=== PATIENT | female | born 1980 ===

== ENCOUNTER 2018-03-14 02:00 | Emergency (ER) | payer MEDICAID ==
[2018-03-14 02:10] VITALS: TEMP 98.9
[2018-03-14] MEDS ORDERED: Alum-Mag Hydrox-Simethicone Susp (30 mL) PO STA (02:28)
[2018-03-14] MEDS ORDERED: Alum-Mag Hydrox-Simethicone Susp (30 mL) ONE (02:43)
--- NOTE | 2018-03-14 02:51 | ED PDOC ---
HPI: General Adult Time Seen by Provider: 03/14/18 02:08 Chief Complaint (Nursing): Anxiety Chief Complaint (Provider): Chest pain and Abdominal Pain History Per: Patient History/Exam Limitations: no limitations Onset/Duration Of Symptoms: Hrs (x2) Current Symptoms Are (Timing): Still Present Additional Complaint(s): 37 year old female with no PMHx presents to the ED with chest pain onset x2 hours. Patient reports she was awoken by a sense of chest tightness and inability to take in a deep breath. She also reports epigastric pain associated x1 episode of non-bloody, non-bilious vomiting but denies nausea. PMD: [place] Past Medical History Reviewed: Historical Data, Nursing Documentation, Vital Signs Vital Signs: Last Vital Signs Temp 98.9 F 03/14/18 02:08 Pulse 104 H 03/14/18 02:08 Resp 17 03/14/18 02:08 BP 128/78 03/14/18 02:08 Pulse Ox 98 03/14/18 02:08 - Medical History PMH: No Chronic Diseases - Surgical History Surgical History: Cholecystectomy - Family History Family History: States: Unknown Family Hx - Social History Current smoker - smoking cessation education provided: No Ex-Smoker (has not smoked in the last 12 months): No Alcohol: Occasional Drugs: Denies - Home Medications Home Medications: Ambulatory Orders Medication Instructions Recorded Esomeprazole Magnesium [Nexium] 20 mg PO QAM #20 ecc 03/14/18 - Allergies Allergies/Adverse Reactions: Allergies Allergy/AdvReac Type Severity Reaction Status Date / Time No Known Allergies Allergy Verified 03/14/18 02:10 Review of Systems ROS Statement: Except As Marked, All Systems Reviewed And Found Negative Cardiovascular: Positive for: Chest Pain (tightness) Respiratory: Positive for: Other (difficulty breathing) Gastrointestinal: Positive for: Vomiting, Abdominal Pain. Negative for: Nausea Physical Exam - Reviewed Nursing Documentation Reviewed: Yes Vital Signs Reviewed: Yes - Physical Exam Appears: Positive for: Uncomfortable Head Exam: Positive for: ATRAUMATIC, NORMOCEPHALIC Skin: Positive for: Normal Color, Warm, Dry Eye Exam: Positive for: EOMI, Normal appearance, PERRL Neck: Positive for: Normal, Painless ROM Cardiovascular/Chest: Positive for: Regular Rate, Rhythm Respiratory: Positive for: Normal Breath Sounds. Negative for: Respiratory Distress Gastrointestinal/Abdominal: Positive for: Tenderness (mild epigastric) Extremity: Positive for: Normal ROM (upper and lower). Negative for: Pedal Edema, Deformity Neurologic/Psych: Positive for: Alert, Oriented (x3). Negative for: Motor/Sensory Deficits - Laboratory Results Result Diagrams: 03/14/18 02:45 03/14/18 02:45 - ECG O2 Sat by Pulse Oximetry: 98 (RA) Pulse Ox Interpretation: Normal Medical Decision Making Medical Decision Making: Time: 213 Impression: 37 y/o with chest pain and epigastric pain Plan: --Labs --EKG Time: 427 --Labs reviewed, no clinically significant abnormalities. Patient reports improvement in symptoms. Diagnosis atypical chest pain. Scribe Attestation: Documented by Masha Vasquez, acting as a scribe for Keenan Salcedo MD. Provider Scribe Attestation: All medical record entries made by the Scribe were at my direction and personally dictated by me. I have reviewed the chart and agree that the record accurately reflects my personal performance of the history, physical exam, medical decision making, and the department course for this patient. I have also personally directed, reviewed, and agree with the discharge instructions and disposition. Disposition - Clinical Impression Clinical Impression: Atypical chest pain - Disposition Disposition Time: 04:28 Condition: STABLE Prescriptions: Esomeprazole Magnesium [Nexium] 20 mg PO QAM #20 ecc Instructions: Chest Pain That Is Not Caused by the Heart (DC) Forms: [employer] ([employer])
[2018-03-14 02:58] LABS: BASO # 0.1 K/uL (0.0-0.2); BASO % 0.5 % (0.0-2.0); EOS # 0.1 K/uL (0.0-0.7); EOS % 0.7 % (0.0-4.0); HEMOGLOBIN 13.1 g/dL (12.0-16.0); LYMPH # 1.9 K/uL (1.0-4.3); LYMPH % 15.5 % (20.0-40.0); MEAN CELL VOLUME 88.2 fl (81.0-99.0); MEAN CORPUSCULAR HEMOGLOBIN 28.5 pg (27.0-31.0); MEAN CORPUSCULAR HGB CONC 32.2 g/dL (33.0-37.0); MEAN PLATELET VOLUME 7.9 fl (7.2-11.7); MONO # 0.5 K/uL (0.0-0.8); MONO % 3.8 % (0.0-10.0); NEUT # 9.9 K/uL (1.8-7.0); NEUT % 79.5 % (50.0-75.0); NRBC % 0.1 % (0.0-0.0); RBC 4.6 Mil/uL (3.80-5.20); RED CELL DISTRIBUTION WIDTH 13.5 % (11.5-14.5); WHITE BLOOD COUNT 12.5 K/uL (4.8-10.8)
[2018-03-14 03:14] LABS: ALB/GLOB RATIO 1.4 (1.0-2.1); ALBUMIN 4.6 g/dL (3.5-5.0); ALT/SGPT 99 U/L (9-52); AST/SGOT 155 U/L (14-36); BLOOD UREA NITROGEN 19 mg/dl (7-17); CALCIUM 9.3 mg/dL (8.4-10.2); GFR NON-AFRICAN AMERICAN > 60; LIPASE 134 U/L (23-300)
[2018-03-14 03:24] LABS: BARBITURATES, UR NEGATIVE (NEGATIVE); BENZODIAZEPINES, UR NEGATIVE (NEGATIVE); OPIATES, UR POSITIVE (NEGATIVE); PHENCYCLIDINE, UR NEGATIVE (NEGATIVE)
[2018-03-14 04:30] VITALS: BP 105/64; PULSE 70; RESP 16
[2018-03-14 04:33] VITALS: O2SAT 98
--- NOTE | 2018-03-14 07:14 | CARD ---
APPROVED REPORT Date of service: 03/14/2018 EKG Measurement Heart [id number] <Conclusion> Normal sinus rhythm Normal ECG
== END 2018-03-14 04:28 | disposition home or self-care (01) ==
LOC: H.ER 02:00
DX: R07.89 Other chest pain (principal); Z87.891 Personal history of nicotine dependence
CPT/HCPCS: 80053; 80324; 80345; 80346; 80349; 80353; 80358; 80361; 83690; 83992; 84484; 85025; 85378; 93005; 99283; J1885

== ENCOUNTER 2018-03-23 22:29 | Emergency (ER) | payer MEDICAID ==
[2018-03-23 22:59] VITALS: O2SAT 100
[2018-03-23] MEDS ORDERED: Iohexol 240 (50 ml) PO STA (23:34)
[2018-03-23] MEDS ORDERED: Sodium Chloride 0.9% 1,000 ML IV STA (23:35)
[2018-03-23] MEDS ORDERED: DiphenhydrAMINE 50 mg/ml Inj IVP STA (23:35)
[2018-03-23] MEDS ORDERED: DiphenhydrAMINE 50 mg/ml Inj ONE (23:42)
[2018-03-23] MEDS ORDERED: Iohexol 240 (50 ml) ONE (23:42)
--- NOTE | 2018-03-24 00:13 | ED PDOC ---
HPI: Abdomen Time Seen by Provider: 03/23/18 23:07 Chief Complaint (Nursing): GI Problem Chief Complaint (Provider): GI Problem History Per: Patient Onset/Duration Of Symptoms: Hrs (x9) Associated Symptoms: Vomiting, Diarrhea Additional Complaint(s): 38 y/o female presents to the ED complaining of vomiting and diarrhea onset earlier today at around 14:00. Patient states that she started having stomach discomfort to her upper abdominal area. Then by around 18:00 she started having multiple episodes of non-bloody non-bilious vomiting associated with watery diarrhea, body aches, and severe weakness. Patient reports having about 12 episodes of vomiting. 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 She denies any recent travel. Patient was seen in this ER on Mar 14 for chest pain and wa s diagnosed with gastritis. Patient states she had been planning to follow up with PMD this week. Patient additionally reports aches to the left side of her neck and her left shoulder which are the same as her last visit. Past Medical History Reviewed: Historical Data, Nursing Documentation, Vital Signs Vital Signs: Last Vital Signs Temp 98.3 F 03/23/18 22:55 Pulse 116 H 03/23/18 22:55 Resp 18 03/23/18 22:55 BP 111/76 03/23/18 22:55 Pulse Ox 100 03/23/18 22:55 - Medical History PMH: No Chronic Diseases - Surgical History Surgical History: Cholecystectomy, - Family History Family History: States: No Known Family Hx, Unknown Family Hx - Social History Current smoker - smoking cessation education provided: No Alcohol: Other (rarely) Drugs: Denies - Home Medications Home Medications: Ambulatory Orders Medication Instructions Recorded Esomeprazole Magnesium [Nexium] 20 mg PO QAM #20 ecc 03/14/18 - Allergies Allergies/Adverse Reactions: Allergies Allergy/AdvReac Type Severity Reaction Status Date / Time No Known Allergies Allergy Verified 03/14/18 02:10 Review of Systems ROS Statement: Except As Marked, All Systems Reviewed And Found Negative (as per HPI otherwise negative) Constitutional: Positive for: Weakness Gastrointestinal: Positive for: Vomiting, Abdominal Pain, Diarrhea Physical Exam - Reviewed Nursing Documentation Reviewed: Yes Vital Signs Reviewed: Yes - Physical Exam Appears: Positive for: Well (Tired appearing), In Acute Distress (gastrointestinal distress) Head Exam: Positive for: ATRAUMATIC, NORMOCEPHALIC Skin: Positive for: Warm, Dry Eye Exam: Positive for: EOMI, PERRL ENT: Positive for: Other (Tacky mucous membranes) Neck: Positive for: Normal, Painless ROM, Supple Cardiovascular/Chest: Positive for: Regular Rate, Rhythm. Negative for: Murmur Respiratory: Positive for: Normal Breath Sounds. Negative for: Respiratory Di stress Gastrointestinal/Abdominal: Positive for: Bowel Sounds (hyperactive), Soft, Tenderness (epigastric and RUQ). Negative for: Distended Back: Positive for: Normal Inspection. Negative for: Muscle Spasm Extremity: Positive for: Normal ROM. Negative for: Deformity Lymphatic: Negative for: Adenopathy Neurologic/Psych: Positive for: Alert, Mood/Affect (anxious affect). Negative for: Motor/Sensory Deficits - Laboratory Results Result Diagrams: 03/23/18 00:10 03/23/18 00:10 - ECG O2 Sat by Pulse Oximetry: 100 (RA) Pulse Ox Interpretation: Normal Medical Decision Making Medical Decision Making: Time: 23:35 Initial Impression: vomiting and diarrhea Initial Plan: * CT Abd Pelvis * CMP * Drug screen * Lipase * ED Urine * CBC w/ diff * Benadryl 25 mg * IV Fluids * Omnipaque 50 ml * Pepcid 20 mg * Reglan 10 mg --------- -------- Scribe Attestation: Documented by Alex Valle acting as a scribe for Kandace Howell MD. Provider Scribe Attestation: All medical record entries made by the Scribe were at my direction and personally dictated by me. I have reviewed the chart and agree that the record accurately reflects my personal performance of the history, physical exam, medical decision making, and the department course for this patient. I have also personally directed, reviewed, and agree with the discharge instructions and disposition. Disposition - Clinical Impression Clinical Impression: Abdominal pain - Disposition Disposition: Transfer of Care Disposition Time: 00:00 Condition: STABLE Patient Signed Over To: Keenan Salcedo Handoff Comments: Pending ER workup, reassessment and final ER disposition
[2018-03-24 00:27] LABS: BASO % 0.1 % (0.0-2.0); EOS % 0.1 % (0.0-4.0); LYMPH # 0.4 K/uL (1.0-4.3); LYMPH % 3.2 % (20.0-40.0); MEAN CELL VOLUME 86.5 fl (81.0-99.0); MEAN CORPUSCULAR HEMOGLOBIN 28.2 pg (27.0-31.0); MEAN CORPUSCULAR HGB CONC 32.7 g/dL (33.0-37.0); MEAN PLATELET VOLUME 8.4 fl (7.2-11.7); MONO # 0.4 K/uL (0.0-0.8); NEUT # 12.5 K/uL (1.8-7.0); NEUT % 93.6 % (50.0-75.0); PLATELET COUNT 323 K/uL (130-400); RBC 5.31 Mil/uL (3.80-5.20); RED CELL DISTRIBUTION WIDTH 13.7 % (11.5-14.5); WHITE BLOOD COUNT 13.3 K/uL (4.8-10.8)
[2018-03-24 00:45] LABS: ALB/GLOB RATIO 1.2 (1.0-2.1); ALBUMIN 4.7 g/dL (3.5-5.0); ALT/SGPT 110 U/L (9-52); AST/SGOT 49 U/L (14-36); BLOOD UREA NITROGEN 22 mg/dl (7-17); CALCIUM 9.1 mg/dL (8.4-10.2); GFR NON-AFRICAN AMERICAN > 60; LIPASE 78 U/L (23-300)
[2018-03-24 00:57] LABS: BARBITURATES, UR NEGATIVE (NEGATIVE); BENZODIAZEPINES, UR NEGATIVE (NEGATIVE); OPIATES, UR NEGATIVE (NEGATIVE); PHENCYCLIDINE, UR NEGATIVE (NEGATIVE)
--- NOTE | 2018-03-24 01:25 | ED PDOC ---
- Laboratory Results Result Diagrams: 03/23/18 00:10 03/23/18 00:10 Lab Results: Total Bilirubin 0.7 mg/dl (0.2-1.3) 03/23/18 00:10 AST 49 U/L (14-36) H D 03/23/18 00:10 ALT 110 U/L (9-52) H 03/23/18 00:10 Alkaline Phosphatase 66 U/L (38-126) 03/23/18 00:10 Total Protein 8.5 G/DL (6.3-8.2) H 03/23/18 00:10 Albumin 4.7 g/dL (3.5-5.0) 03/23/18 00:10 Globulin 3.8 gm/dL (2.2-3.9) 03/23/18 00:10 Albumin/Globulin Ratio 1.2 (1.0-2.1) 03/23/18 00:10 Lipase 78 U/L (23-300) 03/23/18 00:10 - ECG O2 Sat by Pulse Oximetry: 100 (RA) Pulse Ox Interpretation: Normal Medical Decision Making Medical Decision Making: Time: 00:00 Patient care endorsed from Dr. Howell to provider pending CT and reevaluation. 02:55 CT Abd Pelvis COMMENTS: The liver is of uniform attenuation without mass or defect. There is no intra or extrahepatic biliary ductal dilatation. The spleen is normal. The gallbladder is surgically absent. The pancreas is of normal contour and attenuation characteristics. There is no evidence of adrenal mass. Benign self-limited uncomplicated proximal jejunal/jejunal intussusception. Fluid-filled small bowels. Fluid-filled colon. Both kidneys demonstrate prompt and equal nephrograms. The kidneys are normal in size, shape and configuration. There is no evidence of renal or ureteral mass. No renal or ureteral calculi are identified. There is no hydroureter or hydronephrosis. No evidence for appendicitis. There is no bowel wall thickening. No evidence for small or large bowel obstruction. There is no evidence of abdominal ascites or lymphadenopathy. There is no evidence of intrinsic or extrinsic bladder mass. There is no pelvic ascites or lymphadenopathy. Images of the lung bases show no evidence of pleural or parenchymal mass. There are no pleural effusions. The bony structures are free of lytic or blastic lesions. IMPRESSION: Uncomplicated enterocolitis. Benign incidental proximal small bowel intussusception. Probably a benign self- limited finding which can be secondary to hyperactive bowels. No associated bowel edema, surrounding mesenteric edema or bowel perforation. No secondary bowel obstruction. 04:05 Patient reports improvement of symptoms at this time. Stable for discharge diagnosis is gastroenteritis. Scribe Attestation: Documented by Alex Valle acting as a scribe for Keenan Salcedo MD. Provider Scribe Attestation: All medical record entries made by the Scribe were at my direction and personally dictated by me. I have reviewed the chart and agree that the record accurately reflects my personal performance of the history, physical exam, medical decision making, and the department course for this patient. I have also personally directed, reviewed, and agree with the discharge instructions and disposition. Disposition - Clinical Impression Clinical Impression: Gastroenteritis - POA Present On Arrival: None - Disposition Disposition: Routine/Home Disposition Time: 04:05 Condition: STABLE Additional Instructions: GISEL ASHLEY, thank you for letting us take care of you today. Your provider was Keenan Salcedo MD and you were treated for VOMITING/DIARRHEA. The emergency medical care you received today was directed at your acute symptoms. If you were prescribed any medication, please fill it and take as directed. It may take several days for your symptoms to resolve. Return to the Emergency Department if your symptoms worsen, do not improve, or if you have any other problems. Please contact your doctor or call one of the physicians/clinics you have been referred to that are listed on the Patient Visit Information form that is included in your discharge packet. Bring any paperwork you were given at discharge with you along with any medications you are taking to your follow up visit. Our treatment cannot replace ongoing medical care by a primary care provider outside of the emergency department. Thank you for allowing the [facility] team to be part of your care today. If you had an X-Ray or CT scan: A Radiologist will review the ED reading if any change in treatment is needed we will contact you. If you had a blood, urine, or wound culture: It will take several days for the results, if any change in treatment is needed we will contact you. If you had an STI test: It will take 48 hours for the results. Please call after 1 week if you have not heard back. Prescriptions: Dicyclomine [Bentyl] 20 mg PO Q12 PRN #20 tab PRN Reason: abd pain/diarrhea Ondansetron ODT [Zofran ODT] 4 mg PO Q6 PRN #8 odt PRN Reason: Nausea/Vomiting Instructions: Viral Gastroenteritis, Adult (DC) Forms: [facility] (Amharic), [facility] ED School/Work Excuse
[2018-03-24 01:36] LABS: BANDS 2 % (0-2); LYMPHOCYTE 4 % (20-50); MONOCYTE 2 % (0-10); NEUTROPHIL 91 % (42-75); PLATELET ESTIMATE NORMAL (NORMAL); REACTIVE LYMPHOCYTES 1 % (0-0); TOTAL CELLS COUNTED 100
[2018-03-24 01:38] LABS: ANISOCYTOSIS SLIGHT; HYPOCHROMIC SLIGHT; OVALOCYTES SLIGHT
[2018-03-24] MEDS ORDERED: Iohexol 300 100 ML IJ ONE (01:59)
[2018-03-24] MEDS ORDERED: Sodium Chloride 0.9% 50 ML IV ONE (01:59)
[2018-03-24 04:28] VITALS: BP 108/61; PULSE 84; RESP 16; TEMP 98.1
--- NOTE | 2018-03-24 10:01 | CT ---
Date of service: 03/24/2018 PROCEDURE: CT Abdomen and Pelvis with contrast HISTORY: abd pain COMPARISON: None. TECHNIQUE: Following the intravenous administration of iodinated contrast material, a CT examination of the abdomen and pelvis was performed from the domes of the diaphragms to the symphysis pubis with reformatted datasets provided in axial, sagittal and coronal planes. Oral contrast was not administered as per referring physician request. Contrast dose: Omnipaque 300, 90 cc Radiation dose: Total exam DLP = 390.32 mGy-cm. This CT exam was performed using one or more of the following dose reduction techniques: Automated exposure control, adjustment of the mA and/or kV according to patient size, and/or use of iterative reconstruction technique. FINDINGS: LOWER THORAX: Unremarkable. LIVER: Unremarkable. No gross lesion or ductal dilatation. GALLBLADDER AND BILE DUCTS: Prior cholecystectomy. PANCREAS: Unremarkable. No gross lesion or ductal dilatation. SPLEEN: Unremarkable. ADRENALS: Unremarkable. No mass. KIDNEYS AND URETERS: Unremarkable. No hydronephrosis. No solid mass. VASCULATURE: Unremarkable. No aortic aneurysm. No aortic atherosclerotic calcification or mural plaque present. BOWEL: Small hiatal hernia is identified at the thoracic inlet. No bowel obstruction appreciable. Fluid-filled large and small bowel loops are identified diffusely. No pericolic or perienteric reactive change. Proximal small bowel intussusception best seen in coronal images 27 through 36. APPENDIX: Normal appendix. PERITONEUM: Unremarkable. No free fluid. No free air. LYMPH NODES: Unremarkable. No enlarged lymph nodes. BLADDER: Unremarkable. REPRODUCTIVE: Left adnexal cysts identified measuring 3.9 x 3.0 cm which can be better evaluated by transabdominal or transvaginal pelvic ultrasonography. BONES: No acute fracture. OTHER FINDINGS: None. IMPRESSION: 1. Fluid-filled large bowel loops without bowel obstruction appreciable. No overt CT pattern to suggest segmental colitis. Quadrant small bowel intussusception without obstruction or gross lesion appreciable. Please see discussion above. 2. Prior cholecystectomy. Concordant preliminary report from [employer], 03/24/2018 2:55 a.m..
== END 2018-03-24 04:33 | disposition home or self-care (01) ==
LOC: H.ER 22:29
DX: R10.9 Unspecified abdominal pain (principal); K52.9 Noninfective gastroenteritis and colitis, unspecified; Z90.49 Acquired absence of other specified parts of digestive tract
CPT/HCPCS: 74177; 80053; 80324; 80345; 80346; 80349; 80353; 80358; 80361; 81025; 83690; 83992; 85025; 96361; 96374; 96375; 99284; J1200; J2405; J2765; J7030; J7042; Q9966; Q9967